=== PATIENT | male | born 1995 | race Caucasian/White ===

== ENCOUNTER 2020-02-25 21:34 | Emergency (ER) | payer OTHER, BC ==
[2020-02-25] MEDS ORDERED: MORPHINE SULFATE 4 MG/ML SYRINGE IM STA (22:15)
--- NOTE | 2020-02-25 22:26 | ED ---
General Adult HPI - General Chief complaint: Head Injury Stated complaint: Neuro symptoms post trauma Time Seen by Provider: 02/25/20 21:48 Source: patient, RN notes reviewed Mode of arrival: wheelchair Limitations: no limitations - History of Present Illness Initial comments: 24-year-old male presents to the emergency department for a chief complaint of head injury. Patient states he hit his head on the daily of a car yesterday. Patient states that he was seen in an urgent care setting at that time. States that he had a CT brain done. Patient states headache has continued and he now is neck pain. Family member states the patient began stuttering today. States he usually does not stutter. Patient denies visual changes despite triage note but does state it is like his eyes are buldging .Patient has no other complaints at this time including shortness of breath, chest pain, abdominal pain, nausea or vomiting, headache, or visual changes. - Related Data Allergies Allergy/AdvReac Type Severity Reaction Status Date / Time acetaminophen [From Vicodin] Allergy Confusion Verified 02/25/20 21:46 hydrocodone [From Vicodin] Allergy Confusion Verified 02/25/20 21:46 Review of Systems ROS Statement: Those systems with pertinent positive or pertinent negative responses have been documented in the HPI. ROS Other: All systems not noted in ROS Statement are negative. Past Medical History Past Medical History: No Reported History History of Any Multi-Drug Resistant Organisms: None Reported Past Surgical History: Appendectomy Additional Past Surgical History / Comment(s): left testiulcar hernia removed. Smoking Status: Never smoker Past Alcohol Use History: Occasional Past Drug Use History: None Reported General Exam Limitations: no limitations General appearance: alert, in no apparent distress Head exam: Present: normocephalic, normal inspection. Absent: atraumatic (patient has laceration with 6 taiwo on the frontal scalp.) Eye exam: Present: normal appearance, PERRL, EOMI. Absent: scleral icterus, conjunctival injection, periorbital swelling ENT exam: Present: normal exam, mucous membranes moist Neck exam: Present: tenderness (paraspinal tenderness), full ROM. Absent: meningismus, lymphadenopathy Respiratory exam: Present: normal lung sounds bilaterally. Absent: respiratory distress, wheezes, rales, rhonchi, stridor Cardiovascular Exam: Present: regular rate, normal rhythm, normal heart sounds. Absent: systolic murmur, diastolic murmur, rubs, gallop, clicks Neurological exam: Present: alert, oriented X3, normal gait, other (GCS 15) Expanded Patient oriented to: Present: person, place, time Speech: Present: fluid speech Cranial nerves: EOM's Intact: Normal, Tongue Deviation: Normal, Nystagmus: Normal, Facial Sensation: Normal Sensory exam: Upper Extremity Light Touch: Normal, Upper Extremity Pin Prick: Normal, Lower Extremity Light Touch: Normal, Lower Extremity Pin Prick: Normal Motor strength exam: RUE: 5, LUE: 5, RLE: 5, LLE: 5 Eye Response: (4) open spontaneously Motor Response: (6) obeys commands Verbal Response: (5) oriented Joslyn Total: 15 Course Vital Signs 02/25/20 02/25/20 21:43 23:24 Temperature 98.4 F 97.8 F Pulse Rate 81 71 Respiratory 18 18 Rate Blood Pressure 136/80 117/69 O2 Sat by Pulse 98 96 Oximetry Medical Decision Making - Medical Decision Making CT brain and C-spine was performed which was normal. There was no mass effect, midline shift, or intracranial hemorrhage. Patient was given morphine and did have some mild improvement in pain. He did continue to stutter. Patient likely experiencing concussive symptoms. Recommend follow-up with his doctor for which she has an appointment in the coming week. He has the next week off work as well. He will return here for any worsening symptoms which were discussed with him. Disposition Clinical Impression: Concussion, Closed head injury Disposition: HOME SELF-CARE Condition: Good Instructions (If sedation given, give patient instructions): Concussion (ED) Additional Instructions: Please follow-up with your primary care doctor. If you have any worsening symptoms return to the emergency room. If symptoms do not resolve your doctor may refer you to a concussion clinic. Is patient prescribed a controlled substance at d/c from ED?: No Referrals: Amadou Rajan DO [Primary Care Provider] - 1-2 days Time of Disposition: 23:34
--- NOTE | 2020-02-25 22:58 | CT ---
EXAMINATION TYPE: CT brain cspine wo con DATE OF EXAM: 02/25/2020 COMPARISON: HISTORY: Head injury yesterday, now is having difficulty speaking and headache. CT DLP: 1705.2 mGycm Automated exposure control for dose reduction was used. Exam performed with no contrast. Ventricles and sulci appear normal. There is no mass effect nor midline shift. There is no sign of in tracranial hemorrhage. The calvarium is intact. There is no evidence of cerebral edema. Skull base is intact. There is normal aeration of the temporal bones. Cervical vertebra have normal spacing and alignment. Posterior elements are intact. Facet joints appe ar normal. Skull base appears normal. Prevertebral soft tissues appear normal. IMPRESSION: Normal CT scan of the cervical spine. Normal CT scan of the brain.
[2020-02-26] MEDS: ACET/COD 300 MG/30 MG STARTER PACK 6 TAB BTL PO STA ×2 (00:16→00:29)
[2020-02-26 10:29] VITALS: BP 117/69; PULSE 71; RESP 18; TEMP 97.8
== END 2020-02-26 00:20 | disposition home or self-care (01) ==
LOC: EC 21:34
DX: S06.0X0A Concussion without loss of consciousness, initial encounter (principal); Z88.5 Allergy status to narcotic agent; W22.8XXA Striking against or struck by other objects, initial encounter
CPT/HCPCS: 72125; 70450; 96372; 99283; J2270

== ENCOUNTER 2021-06-28 14:33 | Emergency (ER) | payer BC ==
[2021-06-28 14:55] VITALS: RESP 18; TEMP 97.8
--- NOTE | 2021-06-28 14:57 | ED ---
General Adult HPI - General Chief complaint: Neuro Symptoms/Deficit Stated complaint: Mental Changes Time Seen by Provider: 06/28/21 14:50 Source: family, EMS Mode of arrival: EMS Limitations: language barrier - History of Present Illness Initial comments: 25-year-old male with past history of closed head injury last year presents emergency department for stuttering and tremors in his upper extremities. Patient had a car daily door hit him in the head when he was at work last summer and shortly afterwards he began developing a stutter. He was seen in our emergency department and evaluated. CT did not demonstrate any acute process. He followed up at [facility] was hospitalized. States he saw neurologist and had an EEG performed. Patient also had MRI. He states he never had a diagnosis. The stuttering stopped after 3 weeks. Patient presents today. States that he was at work when he had sudden onset of the stuttering at 1345. Denies any new injuries. No unilateral numbness or weakness. No expressive aphasia or dysarthria. Denies headache or fevers. No dizziness. Patient on longer follows with a neurologist the outpatient setting. No other alleviating, nursing education specialist modifying factors - Related Data Home Medications Medication Instructions Recorded Confirmed No Known Home Medications 06/28/21 06/28/21 Allergies Allergy/AdvReac Type Severity Reaction Status Date / Time acetaminophen [From Vicodin] Allergy Confusion Verified 06/28/21 16:06 hydrocodone [From Vicodin] Allergy Confusion Verified 06/28/21 16:06 codeine AdvReac increased Verified 06/28/21 16:06 pain Review of Systems ROS Statement: Those systems with pertinent positive or pertinent negative responses have been documented in the HPI. ROS Other: All systems not noted in ROS Statement are negative. Past Medical History Past Medical History: No Reported History Additional Past Medical History / Comment(s): Closed head injury last year. History of Any Multi-Drug Resistant Organisms: None Reported Past Surgical History: Appendectomy Additional Past Surgical History / Comment(s): left testiulcar hernia removed. Past Psychological History: No Psychological Hx Reported Smoking Status: Never smoker Past Alcohol Use History: Occasional Past Drug Use History: None Reported General Exam Limitations: language barrier General appearance: alert, in no apparent distress Head exam: Present: atraumatic, normocephalic, normal inspection Eye exam: Present: normal appearance, PERRL, EOMI. Absent: scleral icterus, conjunctival injection, periorbital swelling ENT exam: Present: normal exam, mucous membranes moist Neck exam: Present: normal inspection. Absent: tenderness, meningismus, lympha denopathy Respiratory exam: Present: normal lung sounds bilaterally. Absent: respiratory distress, wheezes, rales, rhonchi, stridor Cardiovascular Exam: Present: regular rate, normal rhythm, normal heart sounds. Absent: systolic murmur, diastolic murmur, rubs, gallop, clicks GI/Abdominal exam: Present: soft, normal bowel sounds. Absent: distended, tenderness, guarding, rebound, rigid Extremities exam: Present: normal inspection, full ROM, normal capillary refill. Absent: tenderness, pedal edema, joint swelling, calf tenderness Back exam: Present: normal inspection Neurological exam: Present: alert, oriented X3, CN II-XII intact, other (st uddering speech) Psychiatric exam: Present: normal affect, normal mood Skin exam: Present: warm, dry, intact, normal color. Absent: rash Course Vital Signs 06/28/21 06/28/21 14:49 16:25 Temperature 97.8 F Pulse Rate 93 80 Respiratory 18 18 Rate Blood Pressure 116/60 132/70 O2 Sat by Pulse 96 99 Oximetry EKG Findings - EKG Comments: EKG Findings:: EKG demonstrates normal sinus rhythm with a ventricular rate 73. WV interval 162. QRS 108. QTC of 420. No acute ST segment elevations or depressions. q wave with inverted T waves in lead 3 Medical Decision Making - Medical Decision Making Upon arrival patient was placed into room 24. Thorough history and physical exam was performed. Laboratory studies were conducted, 12-lead EKG performed and patient went for CT of his head. Laboratory studies are reviewed and are within normal limits. CT of the brain fails to demonstrate any acute process. I did speak with Dr. Ku in regards to the patient's care. States that he may be discharged home with outpatient follow-up. This is discussed with the patient feels comfortable with this plan. He is given several recommendations in regards to neurologist in the area. He is to return for any new or worsening symptoms for patient agree to this and was discharged home in stable condition - Lab Data Result diagrams: 06/28/21 14:57 06/28/21 14:57 Lab Results 06/28/21 06/28/21 06/28/21 Range/Units 14:57 14:57 14:57 WBC 6.9 (3.8-10.6) k/uL RBC 5.04 (4.30-5.90) m/uL Hgb 15.4 (13.0-17.5) gm/dL Hct 46.1 (39.0-53.0) % MCV 91.4 (80.0-100.0) fL MCH 30.6 (25.0-35.0) pg MCHC 33.4 (31.0-37.0) g/dL RDW 12.0 (11.5-15.5) % Plt Count 198 (150-450) k/uL MPV 9.0 Neutrophils % 64 % Lymphocytes % 26 % Monocytes % 7 % Eosinophils % 1 % Basophils % 0 % Neutrophils # 4.4 (1.3-7.7) k/uL Lymphocytes # 1.8 (1.0-4.8) k/uL Monocytes # 0.5 (0-1.0) k/uL Eosinophils # 0.1 (0-0.7) k/uL Basophils # 0.0 (0-0.2) k/uL PT 10.2 (9.0-12.0) sec INR 0.9 (<1.2) APTT 24.5 (22.0-30.0) sec Sodium 140 (137-145) mmol/L Potassium 3.8 (3.5-5.1) mmol/L Chloride 107 (98-107) mmol/L Carbon Dioxide 23 (22-30) mmol/L Anion Gap 10 mmol/L BUN 12 (9-20) mg/dL Creatinine 0.91 (0.66-1.25) mg/dL Est GFR (CKD-EPI)AfAm >90 (>60 ml/min/1.73 sqM) Est GFR (CKD-EPI)NonAf >90 (>60 ml/min/1.73 sqM) Glucose 93 (74-99) mg/dL Calcium 8.9 (8.4-10.2) mg/dL Total Bilirubin 0.9 (0.2-1.3) mg/dL AST 42 (17-59) U/L ALT 93 H (4-49) U/L Alkaline Phosphatase 86 (38-126) U/L Troponin I (0.000-0.034) ng/mL Total Protein 6.5 (6.3-8.2) g/dL Albumin 4.2 (3.5-5.0) g/dL 06/28/21 Range/Units 14:57 WBC (3.8-10.6) k/uL RBC (4.30-5.90) m/uL Hgb (13.0-17.5) gm/dL Hct (39.0-53.0) % MCV (80.0-100.0) fL MCH (25.0-35.0) pg MCHC (31.0-37.0) g/dL RDW (11.5-15.5) % Plt Count (150-450) k/uL MPV Neutrophils % % Lymphocytes % % Monocytes % % Eosinophils % % Basophils % % Neutrophils # (1.3-7.7) k/uL Lymphocytes # (1.0-4.8) k/uL Monocytes # (0-1.0) k/uL Eosinophils # (0-0.7) k/uL Basophils # (0-0.2) k/uL PT (9.0-12.0) sec INR (<1.2) APTT (22.0-30.0) sec Sodium (137-145) mmol/L Potassium (3.5-5.1) mmol/L Chloride (98-107) mmol/L Carbon Dioxide (22-30) mmol/L Anion Gap mmol/L BUN (9-20) mg/dL Creatinine (0.66-1.25) mg/dL Est GFR (CKD-EPI)AfAm (>60 ml/min/1.73 sqM) Est GFR (CKD-EPI)NonAf (>60 ml/min/1.73 sqM) Glucose (74-99) mg/dL Calcium (8.4-10.2) mg/dL Total Bilirubin (0.2-1.3) mg/dL AST (17-59) U/L ALT (4-49) U/L Alkaline Phosphatase (38-126) U/L Troponin I <0.012 (0.000-0.034) ng/mL Total Protein (6.3-8.2) g/dL Albumin (3.5-5.0) g/dL Disposition Clinical Impression: Concussion, History of head injury Disposition: HOME SELF-CARE Condition: Stable Instructions (If sedation given, give patient instructions): Post Concussion Syndrome (ED) Additional Instructions: I recommend you follow-up with a neurologist the outpatient setting. Return to the emergency room for any new or worsening symptoms Is patient prescribed a controlled substance at d/c from ED?: No Referrals: Amadou Rajan DO [Primary Care Provider] - 1-2 days Lily George MD [REFERRING] - 1-2 days Kike George MD [REFERRING] - 1-2 days Haider Nguyen DO [REFERRING] - 1-2 days Time of Disposition: 16:15
[2021-06-28 15:05] LABS: Basophils % (A) 0 %; Eosinophils # (A) 0.1 k/uL (0-0.7); Eosinophils % (A) 1 %; HCT 46.1 % (39.0-53.0); HGB 15.4 gm/dL (13.0-17.5); Lymphocytes # (A) 1.8 k/uL (1.0-4.8); Lymphocytes % (A) 26 %; MCH 30.6 pg (25.0-35.0); MCHC 33.4 g/dL (31.0-37.0); MCV 91.4 fL (80.0-100.0); Monocytes # (A) 0.5 k/uL (0-1.0); Monocytes % (A) 7 %; Neutrophils # (A) 4.4 k/uL (1.3-7.7); Neutrophils % (A) 64 %; Platelet Count 198 k/uL (150-450); RBC 5.04 m/uL (4.30-5.90); WBC 6.9 k/uL (3.8-10.6)
[2021-06-28 15:20] LABS: INR 0.9 (<1.2); Partial Thromboplastin Time 24.5 sec (22.0-30.0); Prothrombin Time 10.2 sec (9.0-12.0)
[2021-06-28 15:21] LABS: ALT 93 U/L (4-49); AST 42 U/L (17-59); African American GFR (CKD) >90 (>60 ml/min/1.73 sqM); Albumin 4.2 g/dL (3.5-5.0); Alkaline Phosphatase 86 U/L (38-126); Anion Gap 10 mmol/L; Blood Urea Nitrogen 12 mg/dL (9-20); Calcium 8.9 mg/dL (8.4-10.2); Carbon Dioxide 23 mmol/L (22-30); Chloride 107 mmol/L (98-107); Glucose 93 mg/dL (74-99); Non-African American GFR(CKD) >90 (>60 ml/min/1.73 sqM); Potassium 3.8 mmol/L (3.5-5.1); Sodium 140 mmol/L (137-145); Total Bilirubin 0.9 mg/dL (0.2-1.3); Total Protein 6.5 g/dL (6.3-8.2)
--- NOTE | 2021-06-28 15:23 | CT ---
EXAMINATION TYPE: CT brain wo con DATE OF EXAM: 06/28/2021 COMPARISON: CT brain 02/25/2020 HISTORY: new onset stutter, dysphasia CT DLP: 1170.4 mGycm. Automated Exposure Control for Dose Reduction was Utilized. TECHNIQUE: CT scan of the head is performed without contrast. FINDINGS: There is no acute intracranial hemorrhage, mass effect, or midline shift identified. The ventricles and sulci are within normal limits in size. The globes are intact and the visualized sin uses are clear. IMPRESSION: No acute intracranial hemorrhage, mass effect, or midline shift is seen.
[2021-06-28 16:26] VITALS: BP 132/70; PULSE 80
== END 2021-06-28 16:26 | disposition home or self-care (01) ==
LOC: EC 14:33
DX: S06.0X0A Concussion without loss of consciousness, initial encounter (principal); Z87.820 Personal history of traumatic brain injury; Z88.5 Allergy status to narcotic agent; Z88.6 Allergy status to analgesic agent; W23.1XXA Caught, crushed, jammed, or pinched between stationary objects, initial encounter; Y92.69 Other specified industrial and construction area as the place of occurrence of the external cause
CPT/HCPCS: 36415; 70450; 80053; 84484; 85025; 85610; 85730; 93005; 99284